=== PATIENT | male | born 1965 | race Caucasian/White ===

== ENCOUNTER 2021-09-21 12:58 | Emergency (ER) | payer MEDICAID, SELFPAY ==
[2021-09-21 13:08] VITALS: BP 126/72; BP 136/78; PULSE 100; PULSE 110; RESP 16; TEMP 36.6; O2SAT 100; O2SAT 95; BMI 31.0
--- NOTE | 2021-09-21 13:17 | ED_ITS ---
HPI - Overdose General Chief Complaint: Overdose Stated Complaint: OPIOID OD,NARCAN GIVEN W/GOOD RESULT PER EMS Time Seen by Provider: 09/21/21 13:11 Source: patient and EMS Mode of arrival: EMS Limitations: no limitations History of Present Illness HPI Narrative: 56-year-old male with a history of chronic back pain here after an overdose requiring Narcan. Patient tells me he takes oxycodone 15mg IR for his chronic back pain and took several tablets today in addition to clpnazepam 0.5mg 'several tablets. Was with a friend. EMS called and patient found laying on the wet ground, unresponsive and not breathing. Required rescue breathing and 4mg IN narcan with +effect. Patient on arrival is alert and oriented. He tells me he feels cold but has no other complaints. He tells me this was not intentional o verdose. Related Data Allergies Allergy/AdvReac Type Severity Reaction Status Date / Time Unable to Assess Allergy Verified 09/21/21 13:11 Review of Systems Review of Systems: Yes all other systems are reviewed and are negative Constitutional: Constitutional: Reports no additional constitutional complaints, Denies body ache(s), Denies chills, Denies fever(s), Denies headache(s) and Denies weakness Eyes: Eyes: Reports no additional eye complaints and Denies change in vision ENT: Reports system reviewed and no additional complaints, except as documented, Denies dizziness, Denies headache(s), Denies nasal congestion, Denies nasal discharge and Denies neck pain Cardiovascular: Cardiovascular: Reports no additional cardiovascular complaints, Denies chest pain, Denies leg edema and Denies dyspnea Respiratory: Respiratory: Reports no additional respiratory complaints, Denies cough and Denies dyspnea Gastrointestinal: Gastrointestinal: Reports no additional gastrointestinal complaints, Denies abdominal pain, Denies diarrhea, Denies nausea and Denies vomiting Genitourinary: Genitourinary: Denies urinary incontinence Musculoskeletal: Musculoskeletal: Reports no additional musculoskeletal complaints, Denies back pain, Denies arthralgias, Denies joint swelling, Denies neck pain, Denies numbness and Denies tingling Integumentary/Breasts: Skin/Breast: Reports system reviewed and no additional complaints, except as docu and Denies rash Neurologic: Reports system reviewed and no additional complaints, except as documented, Denies Abnormal speech present, Denies dizziness, Denies headache(s), Denies numbness, Denies tingling and Denies weakness PMFSH Past Medical History Attestation statement: The following information was validated with the patient. Source: old records reviewed and nursing notes reviewed Social History Social History Alcohol intake: never Patient Tobacco Use Status: Current everyday Tobacco user Use of substances other than those prescribed or required for medical reasons: Yes Advance Directives: No Advance Directives Information Provided: No Physical Exam Vital Signs: Vital Signs: Last Vital Signs Temp 97.8 F 09/21/21 13:08 Pulse 96 09/21/21 14:21 Resp 18 09/21/21 14:21 BP 111/71 09/21/21 14:16 Pulse Ox 93 09/21/21 14:56 BMI result Body Mass Index 31.0 Const: General: alert and poor hygiene Orientation/consciousness: patient oriented x3 Limitations: no limitations HEENT: Head: Yes normal to inspection Ears: hearing grossly normal bilaterally General nose exam: Normal external nose present Face and sinus: Yes normal facial exam Mouth: Normal oral and palatal mucosa present Throat: Yes posterior oropharynx normal Eyes: General: appearance normal, both eyes and all related structures Pupils: Equal, round and reactive pupils present Neck: Neck: Yes normal visual inspection Chest: Chest palpation & inspection: normal inspection of the chest Resp: Effort & Inspection: normal respiratory effort Auscultation: clear to auscultation bilaterally Cardio: Rate: regular rate Rhythm: regular rhythm Peripheral pulses: Per ipheral pulses 2+ throughout GI: Inspection: Yes normal to inspection Palpation (GI): Soft to palpation and nontender Auscultation: normal bowel sounds Back/Spine/Pelvis: Thoracic/Lumbar Spine: thoracic and lumbar spine normal to inspection Skin: General skin exam: no rashes or lesions noted Neuro: General: patient oriented x3, moves all extremities, no focal motor deficits and normal sensation to monofilament Cranial nerves: Yes Equal, round and reactive pupils present Cognition (Neuro): normal cognition Speech: No Abnormal speech present Gait exam (Neuro): Normal gait present Motor exam (neuro): 5/5 motor strength present throughout Extrem: General: Yes normal to inspection Course Course Course Narrative: 56-year-old male here after an intentional overdose requiring Narcan and rescue breathing. Patient now alert and oriented with no complaints. Will obtain SUDE consult if patient willing. Reevaluation(s) Reevaluation #1: Patient with Rene from care team. Declined any detox resources. Given intranasal Narcan for home. Here with his ride. Patient walking with a steady gait. Tolerating p.o.. Vitals are stable. For discharge home. Reviewed worrisome signs and symptoms of when to return the emergency department. Comfortable discharge home. Time: 16:15 MDM - Overdose Medical Records Attestation: I reviewed the patient's medical records. Lab Data Attestation: I reviewed the patient's lab results. Discharge Plan Discharge Clinical Impression: Overdose Patient Disposition: Home, Self-Care Instructions: Adult Overdose (ED)
[2021-09-21 14:16] VITALS: BP 111/71; PULSE 92; RESP 18; O2SAT 86
--- NOTE | 2021-09-21 14:20 | PC.NURSE ---
customer care team coach at bedside. sO2 was low while asleep and even awake came up only to 90%. drowsy but wakes to verbals stimuli. falls asleep durng conversation with customer care team coach. nsr on monitor.
[2021-09-21 14:21] VITALS: PULSE 96; RESP 18; O2SAT 94
--- NOTE | 2021-09-21 14:29 | HO.SUDE ---
SUDE Patient is a 56 year old [place] speaking male who presented to [facility] ED after overdosing on oxycodone and klonopin. This television script writer met with patient to discuss substance use and recovery supports. Patient reports he has never overdosed before and states this event was terrifying. Patient reports he only takes prescribed medications. Patient denies using street drugs. Patient at one point reports he took more medication that prescribed due to leg pain. At another point patient states I don't know what happened today. Patient reports he did not take the medications with the intent to get high. Discussed with patient the risk of overdose when combining opiates and benzodiazepines. Patient acknowledged. Patient plans to discuss pain management with his prescriber to come up with a better plan to manage his pain and reduce the risk of overdose. Patient reports his doctor has discussed him getting on Suboxone. Education on Suboxone and methadone provided. Patient reports he does not want to swap one drug for another. Patient states he was previously taking 200-250mg of oxycodone a day and that he is now taking around 100mg and that he has reduced this amount on his own. Patient was vague when asked who his pain management prescriber was. Patient was adamant that he did not want them to be aware of this ED visit. Patient reports he thinks the doctor is affiliated with [facility]. Patient reports no questions or concerns. Encouraged patient to inform staff if he needs anything.
[2021-09-21 14:56] VITALS: O2SAT 93
[2021-09-21] MEDS: Naloxone HCl Nasal TAKE HOME 4 MG SPRAY NOSTRILALT (16:19)
== END 2021-09-21 16:25 | disposition home or self-care (01) ==
PROVIDERS: Emergency Provider Emergency Medicine
DX: R40.4 Transient alteration of awareness (principal); T40.2X1A Poisoning by other opioids, accidental (unintentional), initial encounter; T42.4X1A Poisoning by benzodiazepines, accidental (unintentional), initial encounter; Y92.480 Sidewalk as the place of occurrence of the external cause; G89.29 Other chronic pain; M54.9 Dorsalgia, unspecified; F17.200 Nicotine dependence, unspecified, uncomplicated
CPT/HCPCS: 99284